=== PATIENT | male | born 1950 | race Caucasian/White ===

== ENCOUNTER 2017-02-14 14:12 | Outpatient (RCR) | payer MEDICARE, OTHER | END 2017-02-16 | disposition home or self-care (01) | LOC: WCC 14:12 | DX: L97.319 Non-pressure chronic ulcer of right ankle with unspecified severity (principal); M86.371 Chronic multifocal osteomyelitis, right ankle and foot; M86.061 Acute hematogenous osteomyelitis, right tibia and fibula; I10 Essential (primary) hypertension; M19.90 Unspecified osteoarthritis, unspecified site; Z88.8 Allergy status to other drugs, medicaments and biological substances | CPT/HCPCS: G0463 ==

== ENCOUNTER → 2017-02-14 | Outpatient (CLI) | payer MEDICARE, OTHER ==
--- NOTE | 2017-02-15 16:44 | Diagnostic Imaging Report ---
Indication: Nonhealing right ankle wound Technique: Coronal, sagittal, and axial T1 fast echo and FSE STIR images Comparison: None Findings: Marker indicates slight an ulcer in the medial right ankle/foot junction region. There is considerable edema of the soft tissues, and the ulcer is also apparent on MRI. Adjacent to this, there is markedly abnormal signal within the anterior talus. This is appreciable both on the STIR as increased signal on the T1 images is decreased signal. There is apparent collection of the talus and the calcaneus. This appears to be broad-based and there is no definite evidence of residual joint, so suspect that this is congenital. There are fairly severe degenerative changes of the ankle joint, with subchondral cysts, narrowing of the joint, and considerable a subchondral sclerosis. There is increased STIR and decreased T2 signal on both sides of the joint, but suspect that this is reactive related to the degenerative change and does not indicate infection. No other marrow signal abnormality is evident. The visualized tendinous structures are grossly unremarkable. No focal drainable soft tissue fluid collection demonstrated. Impression: Medial distal ankle soft tissue ulcer. Abnormal T1 and T2 signal in the anterior talus, adjacent to the soft tissue ulcer, highly suspicious for osteomyelitis. 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 Findings discussed with Jackie Connelly at approximately 1500 on 02/15/2017
== END | disposition home or self-care (01) ==
LOC: MRI 16:00
DX: L98.499 Non-pressure chronic ulcer of skin of other sites with unspecified severity (principal)

== ENCOUNTER 2017-02-21 13:17 | Outpatient (RCR) | payer MEDICARE, OTHER ==
[2017-02-21 14:54] LABS: BASOPHILS % (AUTO) 0.9 % (0.0-2.0); EOSINOPHILS % (AUTO) 5.1 % (0.0-3.0); LYMPHOCYTES % (AUTO) 22.8 % (20.0-45.0); MEAN CORPUSCULAR HGB CONC 33.6 G/DL (32.0-36.0); MEAN CORPUSCULAR VOLUME 92 FL (80-99); MONOCYTES % (AUTO) 7.6 % (1.0-10.0); NEUTROPHILS % (AUTO) 63.6 % (45.0-75.0); PLATELET COUNT 334 K/UL (150-450); RED BLOOD COUNT 4.65 M/UL (4.70-6.10); RED CELL DISTRIBUTION WIDTH 12.5 % (11.6-14.8); WHITE BLOOD COUNT 9.9 K/UL (4.8-10.8)
[2017-02-21 15:33] LABS: ANION GAP 13 (5-15); CARBON DIOXIDE 24 mEQ/L (20-30); CHLORIDE 100 mEQ/L (98-107); CREATININE 0.7 mg/dL (0.7-1.2); GLOMERULAR FILTRATION RATE > 60 mL/min (>60); POTASSIUM 4.3 mEQ/L (3.4-4.9); SODIUM 137 mEQ/L (135-145)
[2017-02-21 15:34] LABS: ALANINE AMINOTRANSFERASE 24 U/L (3-41); ALBUMIN/GLOBULIN RATIO 1.5 (1.0-2.7); ASPARTATE AMINO TRANSFERASE 18 U/L (5-40); CALCIUM 9.3 mg/dL (8.6-10.2); CRP QUANT 0.9 mg/dL (< 0.5)
[2017-02-21 15:35] LABS: HEMOLYSIS 4
[2017-02-21 16:00] LABS: ERYTHROCYTE SEDIMENTATION RATE 17 MM/HR (0-20)
== END 2017-03-19 | disposition home or self-care (01) ==
LOC: WCC 13:17
DX: L97.319 Non-pressure chronic ulcer of right ankle with unspecified severity (principal); L03.115 Cellulitis of right lower limb; L02.611 Cutaneous abscess of right foot; M86.371 Chronic multifocal osteomyelitis, right ankle and foot; Z87.891 Personal history of nicotine dependence; Z88.8 Allergy status to other drugs, medicaments and biological substances; I10 Essential (primary) hypertension; M19.90 Unspecified osteoarthritis, unspecified site
CPT/HCPCS: 10060; 10140; 36415; 80053; 85025; 85651; 86140; 87070; 87205; G0463

== ENCOUNTER 2017-02-21 14:19 | Outpatient (CLI) | payer MEDICARE, OTHER ==
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
== END 2017-02-21 16:19 | disposition home or self-care (01) ==
LOC: LAB 14:19
DX: S91.001A Unspecified open wound, right ankle, initial encounter (principal); M86.9 Osteomyelitis, unspecified; X58.XXXA Exposure to other specified factors, initial encounter; Y93.9 Activity, unspecified; Y92.9 Unspecified place or not applicable
CPT/HCPCS: 87070; 87205

== ENCOUNTER → 2017-03-01 | Outpatient (CLI) | payer MEDICARE, OTHER ==
[~2017-03-01] VITALS: Ht 167.6 cm; Wt 71.7 kg
[~2017-03-01] MED LIST: Heparin 2000 units/Ns 1000ml INJ ONE; Lidocaine 1% Plain 30 ml INJ ONE; Lidocaine/Epinephrine 2% 20 ML VIAL IV ONE
--- NOTE | 2017-03-01 12:52 | Diagnostic Imaging Report ---
Indications: Infection requiring long-term IV antibiotics Technique: The procedure indications, risks, and alternatives were explained to the patient who understands and gives consent to proceed. Strict aseptic technique was utilized, including hand washing, use of hat and mask, use of sterile gown and gloves, sterile ultrasound gel and probe cover, prepping of left arm skin with 2% chlorhexidine solution, and application of full body sterile barrier over this area. Skin and subcutaneous soft tissues were infiltrated with 1% lidocaine and sodium bicarbonate. A small dermatotomy was made, through which the patent, adequate size left basilic vein was punctured percutaneously under direct sonographic guidance with a 21-gauge needle. Exchange was made over a 0.018 inch guidewire for a 5 Cypriot peel-away sheath. A [employer] Power-PICC 5 [place]riot dual lumen central venous catheter was cut to appropriate length, then advanced through the sheath over the guidewire under direct fluoroscopic guidance into the superior vena cava. Guidewire and sheath were removed. Both catheter ports were aspirated, then flushed with heparinized saline. Final image was obtained. Catheter was secured the skin with adhesive dressing. Patient tolerated procedure well without immediate complications. Total fluoroscopy time: 0.1 minutes. Dose-area product: 1.6 dGy-cm2 Findings: Final image demonstrates tip of the central venous catheter at the level of superior vena cava-right atrial junction, 43 cm in from the skin. Both ports aspirate and flush freely. IMPRESSION: Placement of peripherally inserted central venous catheter via left basilic vein, working well.
== END | disposition home or self-care (01) ==
LOC: RAD 10:55
DX: M86.9 Osteomyelitis, unspecified (principal); Z79.899 Other long term (current) drug therapy
CPT/HCPCS: 36569; 76937; J1644; J2001

== ENCOUNTER 2017-03-20 13:30 | Outpatient (RCR) | payer MEDICARE, OTHER | END 2017-04-19 | disposition home or self-care (01) | LOC: WCC 13:30 | DX: L97.319 Non-pressure chronic ulcer of right ankle with unspecified severity (principal); L03.115 Cellulitis of right lower limb; L02.611 Cutaneous abscess of right foot; M86.371 Chronic multifocal osteomyelitis, right ankle and foot; Z88.8 Allergy status to other drugs, medicaments and biological substances; I10 Essential (primary) hypertension; M19.90 Unspecified osteoarthritis, unspecified site | CPT/HCPCS: G0463 ==

== ENCOUNTER 2017-03-20 13:30 | Outpatient (CLI) | payer MEDICARE, OTHER ==
--- NOTE | 2017-03-20 18:21 | Infectious Diseases Prog Note ---
Assessment/Plan Problems: (1) Osteomyelitis of right foot Assessment & Plan: unclear cause, with negative abscess fluids culture, will start him on daptomycin and cefepime for 6 weeks , pending bone biopsy for culture and to rule out other etiology, need revascularization to improve his chance of recovery due to MOD vascular disease (2) Right foot infection Assessment & Plan: will start daptomycin and cefepime empirically pending work up with bone biopsy and revascularization (3) PVD (peripheral vascular disease) Assessment & Plan: recommend revascularization as soon as possible to improve his chance of recovery and wound healing Subjective Constitutional: Reports: no symptoms HEENT: Reports: no symptoms Respiratory: Reports: no symptoms Breasts: Reports: no symptoms Cardiovascular: Reports: no symptoms Gastrointestinal/Abdominal: Reports: no symptoms Genitourinary: Reports: no symptoms Neurologic: Reports: no symptoms Psychiatric: Reports: no symptoms Skin: Reports: ulcer Musculoskeletal: Reports: pain, swelling Allergies: Coded Allergies: No Known Allergies (Unverified , 03/01/17) Objective General Appearance: WD/WN, no acute distress HEENT: normocephalic, atraumatic, anicteric, mucous membranes moist, PERRL Respiratory/Chest: chest wall non-tender, lungs clear, normal breath sounds, no respiratory distress, no accessory muscle use Cardiovascular: normal peripheral pulses, normal rate, regular rhythm, no gallop/murmur, no JVD Abdomen: normal bowel sounds, soft, non tender, no organomegaly, non distended , no mass, no scars Extremities: no cyanosis, no clubbing Skin: no rash, no lesions, ulcers, other - right heel tenderness with swelling Neurologic/Psychiatric: alert, oriented x 3 Lymphatic: no neck adenopathy, no groin adenopathy Renu Mckinney M.D. Mar 20, 2017 18:21
--- NOTE | 2017-03-21 19:23 | Diagnostic Imaging Report ---
APPROVED REPORT CPT Code: 23655 Symptoms Comments: Chronic non healing wound right ankle RIGHT LEG: Common femoral artery waveform analysis is within normal limits at rest. Color flow duplex sonography reveals calcification throughout the superficial femoral and popliteal arteries. There is no evidence of significant stenosis or occlusion within these segments. The tibioperoneal trunks were not well visualized. The posterior tibial, anterior tibial and dorsalis pedis arteries are also mildly calcified. Doppler waveform analysis is monophasic, consistent with moderate ischemia at rest. LEFT LEG: Common femoral artery waveform analysis is within normal limits at rest. Color flow duplex sonography reveals calcification throughout the superficial femoral and popliteal arteries. There is no evidence of significant stenosis or occlusion within these segments. The tibioperoneal trunks were not well visualized. The posterior tibial, anterior tibial and dorsalis pedis arteries are also minimally calcified. Doppler tibial artery waveform (biphasic) analysis is within normal limits at rest.
== END 2017-03-20 15:30 | disposition home or self-care (01) ==
LOC: VAS 13:30
DX: M86.9 Osteomyelitis, unspecified (principal); L08.9 Local infection of the skin and subcutaneous tissue, unspecified; I73.9 Peripheral vascular disease, unspecified
CPT/HCPCS: 93925